=== PATIENT | female | born 1975 | race Caucasian/White ===

== ENCOUNTER 2018-01-08 17:00 | Emergency (ER) | payer MEDICAID, SELFPAY ==
[2018-01-08 19:33] VITALS: BP 00/00; PULSE 0; RESP 0; TEMP -17.7; TEMP 0
== END 2018-01-08 19:37 | disposition left against medical advice (07) ==
PROVIDERS: Emergency Provider Emergency Medicine; Family Provider Nurse Practitioner Family; PCP Nurse Practitioner Family
DX: Z53.29 Procedure and treatment not carried out because of patient's decision for other reasons (principal)

== ENCOUNTER 2018-01-19 19:09 | Emergency (ER) | payer MEDICAID, SELFPAY ==
[2018-01-19 19:32] VITALS: BP 164/97; PULSE 99; RESP 14; TEMP 37.2; O2SAT 97; BMI 38.9
--- NOTE | 2018-01-19 19:42 | XR_ITS ---
XR knee RT 3V HISTORY: ITS.REASON: pain ORDERING PHYSICIAN: Shaista Godinez MD PATIENT AGE: 42 years COMPARISON: None FINDINGS: No fracture or dislocation. No lytic or blastic change. Normal mineralization. Mild osteoarthritic changes are present at the medial compartment and patellofemoral joint. No other significant findings IMPRESSION: Mild osteoarthritis otherwise negative
--- NOTE | 2018-01-19 19:42 | XR_ITS ---
XR knee LT 3V HISTORY: ITS.REASON: pain ORDERING PHYSICIAN: Shaista Godinez MD PATIENT AGE: 42 years COMPARISON: None FINDINGS: No fracture or dislocation. No lytic or blastic change. Normal mineralization. Mild osteoarthritic changes are present at the medial compartment and patellofemoral joint . A subcortical lucency is present along the posterior patella nonspecific No other significant findings IMPRESSION: Mild osteoarthritis otherwise negative
--- NOTE | 2018-01-19 20:58 | [facility].EDGENADL ---
ED Disposition Clinical Impression: Bilateral knee pain Qualifiers: Chronicity: acute Qualified Code(s): M25.561 - Pain in right knee Disposition: Home, Self-Care Condition on Discharge: Good Instructions: DI for Knee Pain Additional Instructions: Please follow-up with 1 of the orthopedic surgeons listed, Dr. Rain or Dr. Vega, within the next 2-3 days. Take the medications prescribed daily, for pain control. Prescriptions: Etodolac [Lodine 400mg Tab] 400 mg PO DAILY #30 tab Referrals: Júnior Rain MD [Staff Physician] - Froilan Irby MD [Staff Physician] - Time of Disposition: 20:58 - Critical Care Critical Care Time: No Attestation: On 01/19/18, the high probability of a clinically significant, sudden or life threatening deterioration of the following system(s) required my full and direct attention, intervention and personal management. The time I documented below is in addition to time spent performing reported procedures but includes the following listed in this critical care notation. Medical Decision Making - Medical Records Medical records reviewed: Yes: I reviewed the patient's medical records. Vital Signs: 01/19/18 19:32 01/19/18 21:05 Temperature 98.9 F 97.9 F Temperature Source Oral Pulse Rate 80 Pulse Rate [Left Radial] 99 H Respiratory Rate 14 20 Blood Pressure 145/70 Blood Pressure [Right Arm] 164/97 Blood Pressure Mean [Right Arm] 119 Blood Pressure Source [Right Arm] Automatic Cuff Blood Pressure Position Sitting Blood Pressure Position [Right Arm] Sitting 02 Sat by Pulse Oximetry 97 Oxygen Delivery Method Room Air - Radiology Data #1 Image(s): Knee Image Reviewed: Yes I reviewed the patient's radiology image Left knee - DJD #2 Image(s): Knee (right) Image Reviewed: Yes I reviewed the patient's radiology image DJD, OA - Cam Inquiry Pt receiving controlled substance: No - Reevaluation(s) Time: 20:55 Reevaluation #1: Patient reevaluated, appears in moderate distress. Advised patient of results obtained, need to take the medications prescribed as directed and follow-up with local orthopedic surgeon of choice within the next couple of days, per discharge instructions. General Adult HPI - General Chief complaint: PAIN Stated complaint: knee pain right leg pain Mode of Arrival: Ambulatory Limitations: No Limitations Description of Symptoms (Recalled from ER Triage Doc. by RN): bilateral knee pain for 1 month - History of Present Illness HPI narrative: This is a 41-year-old female patient with no local family physician. She is here complaining with nontraumatic bilateral knee pain. Complains with morning stiffness, especially in the right knee, which she cannot bend fully. Patient has any joint swelling, any fever, chills. MD complaint: Bilateral knee pain Onset (ago): month(s) (1) Location: lower extremity (Bilateral knee pain) Radiation: non-radiation Severity: mild Severity scale (1-10): 4 Quality: aching Consistency: intermittent Relieving factors: rest Exacerbating factors: movement Associated symptoms: denies other symptoms Treatments prior to arrival: none - Related Data Home Medications Medication Instructions Recorded Confirmed Albuterol Sulfate [Albuterol HFA 2 act INHALATION Q4HP PRN 01/19/18 01/19/18 Inhaler] Previous Rx's Medication Instructions Recorded Etodolac [Lodine 400mg Tab] 400 mg PO DAILY #30 tab 01/19/18 Allergies Allergy/AdvReac Type Severity Reaction Status Date / Time No Known Allergies Allergy Unverified 11/05/17 14:59 [facility] History I have reviewed the patient's past medical history: Yes Medical History: Denies:: Cancer, Diabetes Mellitus Type 1, Diabetes Mellitus Type 2, MRSA Amputation: No Fractures: No - Social History Smoking Status: Current every day smoker Tobacco Type: cigarettes # Packs/Day (cigarettes): 1 Alcohol Intake: never -
[2018-01-19 21:05] VITALS: BP 145/70; PULSE 80; RESP 20; TEMP 36.6; O2SAT 99
== END 2018-01-19 21:05 | disposition home or self-care (01) ==
PROVIDERS: Emergency Provider Emergency Medicine
DX: M25.561 Pain in right knee (principal)
CPT/HCPCS: 73562; 99281

== ENCOUNTER → 2018-04-28 15:07 | Outpatient (REF) | payer MEDICAID, SELFPAY ==
[2018-04-28 18:21] LABS: Basophils % 0.4 % (0.1-2.0); Eosinophils # 0.2 K/mm3 (0.0-0.4); Hematocrit 46.7 % (37.0-47.0); Hemoglobin 14.6 g/dL (12.2-16.2); Lymphocytes # 1.9 K/mm3 (0.7-4.5); Mean Corpuscular HGB Conc 31.3 g/dL (31.8-35.4); Mean Corpuscular Hemoglobin 30.8 pg (27.0-31.2); Mean Corpuscular Volume 98.5 fl (81-99); Mean Platelet Volume 7.5 fl (7.4-10.4); Monocytes # 0.5 K/mm3 (0.1-1.0); Monocytes % 6.4 % (1.7-9.3); Neutrophils # 4.8 K/mm3 (1.8-7.8); Neutrophils % 64.2 % (37.0-80.0); Platelet Count 351 K/mm3 (142-424); Red Blood Count 4.75 M/mm3 (4.20-5.40); Red Cell Distribution Width 13.1 % (11.5-17.5); White Blood Count 7.4 K/mm3 (4.8-10.8)
[2018-04-28 18:57] LABS: Alanine Aminotransferase 13 U/L (12-78); Albumin Level 3.8 gm/dL (3.4-5.0); Albumin/Globulin Ratio 1.2 (1.1-1.8); Alkaline Phosphatase 77 U/L (46-116); Anion Gap 13.9 mEq/L (5-15); Aspartate Amino Transferase 10 U/L (15-37); Bilirubin,Total 0.5 mg/dL (0.2-1.0); Blood Urea Nitrogen 14 mg/dL (7-18); Calcium 9.7 mg/dL (8.5-10.1); Carbon Dioxide 27 mmol/L (21.0-32.0); Chloride 106 mmol/L (98-107); Chol/HDL Ratio 6.5 (1-3.5); Cholesterol 239 mg/dL (140-200); Creatinine,Serum 0.76 mg/dL (0.55-1.02); Estimated Glomerular Filt Rate 83 ml/min (>60); GFR (African American) 101 ML/MIN (>60); Globulin 3.2 gm/dl (1.3-3.2); Glucose 88 mg/dL (74-106); HDL Cholesterol 37 mg/dL (29-89); LDL Cholesterol 179 mg/dL (0-130); Potassium 4.9 mmoL/L (3.5-5.1); Sodium 142 mmol/L (136-145); Thyroid Stimulating Hormone 1.02 uIU/ml (0.358-3.740); Triglycerides 117 mg/dL (30-200); VLDL Cholesterol 23 mg/dL (0-40)
== END ==
LOC: LAB 15:07
PROVIDERS: Visit Provider Emergency Medicine
DX: R53.83 Other fatigue (principal); R60.0 Localized edema; Z79.899 Other long term (current) drug therapy
CPT/HCPCS: 80053; 80061; 82652; 84439; 84443; 85025

== ENCOUNTER → 2018-08-19 08:07 | Outpatient (CLI) | payer MEDICAID, SELFPAY ==
--- NOTE | 2018-08-19 08:13 | MR_ITS ---
MR knee LT wo con HISTORY: Left knee pain ITS.REASON: evaulate for meniscal tear ORDERING PHYSICIAN: Júnior Rain MD PATIENT AGE: 43 years Comparison: None TECHNIQUE: Standard multiplanar multiecho sequences are performed without contrast. FINDINGS: The cruciate ligaments, collateral ligaments, patellar tendon, and quadriceps tendon are intact. No obvious meniscal tear. There is thinning of the patellar cartilage with full-thickness cartilage loss centrally and superiorly with focal subcortical increased T2 signal within the patella in the mid and upper patellar region consistent with grade 4 chondromalacia patella. There is a small knee joint effusion. There are mild tricompartmental osteoarthritic changes. No fracture or dislocation. IMPRESSION: 1. Grade IV chondromalacia patella. 2. Tricompartmental osteoarthritis with small knee joint effusion. 3. No evidence of internal derangement
--- NOTE | 2018-08-19 08:13 | MR_ITS ---
MR knee RT wo con HISTORY: Right knee pain ITS.REASON: evaulate for meniscal tear ORDERING PHYSICIAN: Júnior Rain MD PATIENT AGE: 43 years Comparison: 01/19/2018 TECHNIQUE: Standard multiplanar multiecho sequences are performed without contrast. FINDINGS: The cruciate ligaments, collateral ligaments, patellar tendon, and quadriceps tendon are unremarkable. No meniscal tear apparent. There is some irregularity with thinning of the patellar cartilage. Subcortical decreased T1 and increased T2 signal is present along the dorsal surface of the patella consistent with bony reactive changes There are mild osteoarthritic changes involving all 3 compartments. There is a small knee joint effusion. IMPRESSION: 1. Chondromalacia patella. Grade 4 modified [place] grading of chondromalacia with full-thickness cartilage loss and underlying bone reactive changes 2. Osteoarthritis with small knee joint effusion 3. No internal derangement
== END ==
PROVIDERS: Family Provider Nurse Practitioner Family; PCP Emergency Medicine; Visit Provider Orthopaedic Surgery
DX: M17.12 Unilateral primary osteoarthritis, left knee (principal); M17.11 Unilateral primary osteoarthritis, right knee
CPT/HCPCS: 73721